=== PATIENT | female | born 1995 | race Caucasian/White ===

== ENCOUNTER 2017-02-09 16:15 | Emergency (ER) | payer BC ==
[2017-02-09 16:23] VITALS: BP 123/80
--- NOTE | 2017-02-09 17:09 | UC ---
Throat Pain/Nasal Santana HPI - HPI Summary HPI Summary: 21 y ear old female with cough. Congestion and cough for one week. Right ear and facial pressure for one day. No fever. No SOB or CP. [ End ] - History of Current Complaint Chief Complaint: UCRespiratory Stated Complaint: SINUS,EARS Time Seen by Provider: 02/09/17 17:05 Hx Obtained From: Patient Hx Last Menstrual Period: 01/15/17 Onset/Duration: Gradual Onset Cough: Nonproductive - Allergies/Home Medications Allergies/Adverse Reactions: Allergies Allergy/AdvReac Type Severity Reaction Status Date / Time Penicillins Allergy Hives Verified 02/09/17 16:20 Home Medications: Home Medications Fygldakrvtrie-Yikiqvacmw-Rekvh [Vicks Dayquil/Nyquil Cold] 30 ml PO Q6H PRN [History Confirmed 02/09/17] PMH/Surg Hx/FS Hx/Imm Hx Previously Healthy: Yes - Surgical History Surgical History: None - Family History Known Family History: Positive: None - Social History Occupation: Student Lives: Dormitory/Roommates Alcohol Use: Occasionally Substance Use Type: None Smoking Status (MU): Never Smoked Tobacco - Immunization History Most Recent Influenza Vaccination: Not the 2016/2017 Season Review of Systems Constitutional: Fatigue ENT: Sore Throat, Ear Ache, Nasal Discharge, Sinus Congestion, Sinus Pain/ Tenderness Respiratory: Cough Is Patient Immunocompromised?: No All Other Systems Reviewed And Are Negative: Yes Physical Exam Triage Information Reviewed: Yes Appearance: Well-Appearing, No Pain Distress, Well-Nourished Vital Signs: Initial Vital Signs Temp 98 F 02/09/17 16:18 Pulse 90 02/09/17 16:18 Resp 16 02/09/17 16:18 BP 123/80 02/09/17 16:18 Pulse Ox 100 02/09/17 16:18 Vital Signs Reviewed: Yes Eye Exam: Normal ENT Exam: Normal ENT: Positive: Pharynx normal, Nasal congestion, TM bulging, TM dull - right, TM red - right, Other: - right frontal sinus pressure and tenderness to palpation. Negative: Tonsillar swelling, Tonsillar exudate Dental Exam: Normal Neck exam: Normal Neck: Positive: 1 Respiratory Exam: Normal Cardiovascular Exam: Normal Abdominal Exam: Normal Musculoskeletal Exam: Normal Neurological Exam: Normal Psychological Exam: Normal Skin Exam: Normal Throat Pain/Nasal Course/Dx - Course Course Of Treatment: PCN allergy -- can toleate the z pack - Differential Dx/Diagnosis Differential Diagnosis/HQI/PQRI: Pharyngitis, Sinusitis, Tonsillitis, URI Provider Diagnoses: Right AOM Discharge - Discharge Plan Condition: Good Disposition: HOME Prescriptions: Azithromyxin BERNARDO (NF) [Z-Bernardo (Zithromax) 250 mg tabs #6] 2 tab PO .TODAY, THEN 1 DAILY #6 tab Patient Education Materials: Otitis Media (ED) Forms: *School Release Referrals: Non Staff,Doctor [Primary Care Provider] - If Needed
== END 2017-02-09 17:51 | disposition home or self-care (01) ==
LOC: UCCORT 16:15
DX: H66.91 Otitis media, unspecified, right ear (principal); Z88.0 Allergy status to penicillin
CPT/HCPCS: 99202; G0463